=== PATIENT | male | born 1960 | race Caucasian/White ===

== ENCOUNTER → 2019-11-14 10:59 | Outpatient (CLI) | payer OTHER, SELFPAY ==
[2019-11-14 11:26] VITALS: PULSE 103; PULSE 106; PULSE 108; PULSE 110; PULSE 87; PULSE 89; O2SAT 94; O2SAT 95; O2SAT 96; O2SAT 97; O2SAT 98
[2019-11-14 12:50] LABS: Hematocrit 41.1 % (40-54); Hemoglobin 13.1 g/dL (13.0-16.5); Mean Corp Hgb Conc 31.9 g/dL (32-36); Mean Corpuscular Hgb 29.3 pg (27.0-32.0); Mean Corpuscular Volume 91.9 fL (80-94); Platelet Count 259 K/mm3 (150-450); RBC Distribution Width CV 14.2 % (11.6-14.6); Red Blood Count 4.47 M/mm3 (4.6-6.2); White Blood Count 8.4 K/mm3 (4.4-11.0)
[2019-11-14 13:07] LABS: ALB/GLOB Ratio 0.9 RATIO (0.9-2.4); AST(SGOT) 12 U/L (15-37); Alanine Aminotransfer ALT/SGPT 28 U/L (16-61); Albumin, Serum 3.6 g/dL (3.2-5.0); Alkaline Phosphatase 60 U/L (45-117); Anion Gap 6 (5-15); BUN 14 mg/dL (7-18); BUN/Creat Ratio 18.1 RATIO (10-20); Calcium,Total 9.2 mg/dL (8.5-10.1); Chloride 103 mmol/L (98-107); Creatinine, Serum 0.77 mg/dL (0.70-1.30); EST Glomerular Filtration Rate 109 mL/min (>60); Est Glom Filt Rate - Afr Amer 131 mL/min (>60); Estimated Creatinine Clearance 97.47 ml/min; Globulin 3.9 g/dL (2.2-4.2); Glucose 104 mg/dL (74-106); Potassium 4.1 mmol/L (3.5-5.1); Protein, Total 7.5 g/dL (6.4-8.2); Sodium Level 136 mmol/L (136-145)
[2019-11-14 13:31] LABS: Hepatitis B Surface Antibody Non-Reactive; Hepatitis B Surface Antigen Non-Reactive (Nonreactive)
--- NOTE | 2019-11-15 11:22 | PCM.PSN.6M ---
PSN 6 Minute Walk Test - 6 Minute Walk Test 6 Minute Walk Test: 6 Minute Walk Test PSN:6-Minute Walk Test Start: 11/14/19 11:25 Freq: Status: Active Protocol: [id number] Document 11/14/19 11:26 FR (Rec: 11/14/19 11:33 FR [id number]) 6 Minute Walk Test Date Performed 11/14/19 Time Performed 11:00 Height 5 ft 8 in Weight: 175 lb Weight in Pounds 175.[address]: Assistive device used: None Pre-test Oxygen Delivery Method Room Air Pulse Ox (%) 96 Pulse Rate (60-100 beats/min) 87 Dyspnea Kellie Scale (0-10) 0 Exertion Kellie Scale (6-20) 8 1st minute Oxygen Delivery Method Room Air Pulse Ox (%) 94 Pulse Rate (60-100 beats/min) 103 H 2nd minute Oxygen Delivery Method Room Air Pulse Ox (%) 94 Pulse Rate (60-100 beats/min) 106 H 3rd minute Oxygen Delivery Method Room Air Pulse Ox (%) 95 Pulse Rate (60-100 beats/min) 108 H 4th minute Oxygen Delivery Method Room Air Pulse Ox (%) 97 Pulse Rate (60-100 beats/min) 110 H 5th minute Oxygen Delivery Method Room Air Pulse Ox (%) 95 Pulse Rate (60-100 beats/min) 108 H 6th minute Oxygen Delivery Method Room Air Pulse Ox (%) 95 Pulse Rate (60-100 beats/min) 110 H Dyspnea Kellie Scale (0-10) 3 Exertion Kellie Scale (6-20) 11 Post-test Oxygen Delivery Method Room Air Pulse Ox (%) 98 Pulse Rate (60-100 beats/min) 89 Full Laps Walked 27 Partial Lap, Number of Tiles Walked 13 Total Distance Walked (ft) 1606 - Interpretation Interpretation: The patient ambulated 1606 feet over the course of 6 minutes beginning on room air without assistive devices or breaks. Pretesting oxygen saturation was noted to be 96% on room air. With ambulation, the tan oxygen saturation was 94%. There was no significant exertional oxygen desaturation. - Recommendations Recommendations: There is no indication for the use of supplemental oxygen at this time.
[2019-11-17 03:06] LABS: QNTFERON TB Mitogen Value > 10.00 IU/mL (.); QNTFERON TB Nil Value 0.05 IU/mL (.); QNTFERON TB1+ Ag Value 0.08 IU/mL (.); QNTFERON TB2+ Ag Value 0.05 IU/mL (.)
[2019-11-17 16:26] LABS: QNTIFERON TB Positive Criteria Negative (Negative)
== END ==
PROVIDERS: PCP Student in an Organized Health Care Education/Training Program; Referring Provider Internal Medicine Critical Care Medicine; Visit Provider Internal Medicine Critical Care Medicine
DX: K51.011 Ulcerative (chronic) pancolitis with rectal bleeding (principal); R91.8 Other nonspecific abnormal finding of lung field
CPT/HCPCS: 36415; 80053; 85027; 86140; 86480; 86706; 87340; 94618

== ENCOUNTER → 2019-11-21 08:15 | Outpatient (CLI) | payer OTHER, SELFPAY ==
--- NOTE | 2019-11-22 05:46 | PFTCOMP ---
COMPLETE PULMONARY FUNCTION TEST INTERPRETATION Brief HPI: Patient is a 59 year old male, currently under the care of Dr. Nassar, who presents to [facility] for complete pulmonary function tests secondary to diagnosis of lung nodules. Respiratory therapist reports good effort and reproducible results. The patient was on prednisone therapy at the time of testing secondary to ulcerative colitis. Interpretation: Forced expiration spirometry shows no large airways obstructive ventilatory defect with an FEV1 of 101% predicted. There is no significant bronchodilator response by strict ATS criteria. Spirograms are of good quality and plateau slowly, indicating slowly emptying areas of the lungs. The respiratory flow volume loop shows a normal pattern. Lung volumes by body plethysmography show a normal total lung capacity at 6.08 L, 99% predicted. All other lung volumes are within normal limits. Diffusion capacity by carbon monoxide is normal at 73% predicted. The airway resistance is normal. No previous pulmonary function tests were available for review. Impression: These pulmonary function tests are grossly within normal limits. Patient did have some response to bronchodilators, but this did not reach clinical significance by ATS criteria while on prednisone therapy.
== END ==
PROVIDERS: PCP Student in an Organized Health Care Education/Training Program; Referring Provider Internal Medicine Critical Care Medicine; Visit Provider Internal Medicine Critical Care Medicine
DX: K51.011 Ulcerative (chronic) pancolitis with rectal bleeding (principal); R91.8 Other nonspecific abnormal finding of lung field
CPT/HCPCS: 94060; 94726; 94729